=== PATIENT | female | born 1995 | race Caucasian/White ===

== ENCOUNTER → 2017-06-04 | Outpatient (REF) ==
[2017-06-04 15:43] LABS: THYROID STIMULATING HORMONE 1.49 uIU/mL (0.465-4.680)
== END ==
LOC: ZLAB.WCH 14:19
PROVIDERS: Nurse Practitioner Family
DX: Z01.89 Encounter for other specified special examinations (principal)

== ENCOUNTER → 2018-09-19 | Outpatient (REF) | LOC: ZLAB.WCH 16:54 | DX: Z01.89 Encounter for other specified special examinations (principal) ==

== ENCOUNTER → 2018-09-26 | Outpatient (REF) | LOC: ZLAB.WCH 16:10 | DX: Z01.89 Encounter for other specified special examinations (principal) ==

== ENCOUNTER 2019-07-15 18:46 | Inpatient (IN) | payer BC ==
[2019-07-15] VITALS (9 sets, daily range): BP systolic 107–152; BP diastolic 59–84; PULSE 69–90; TEMP 97.8
[~2019-07-15] VITALS: Ht 162.6 cm; Wt 75.5 kg
[~2019-07-15 18:46] MED LIST: ZOLOFT 50MG50 MG PO
[2019-07-15 20:14] LABS: BASO % 0.2 % (0.0-2.0); GRAN # 17.7 (1.4-6.5); GRAN % 85.5 % (42.2-75.2); HEMOGLOBIN 12.3 g/dl (12.5-16.0); LYMPH # 2.1 (1.2-3.4); LYMPH % 10.1 % (20.0-51.0); MEAN CELL VOLUME 93 fl (80.0-100.0); MEAN CORPUSCULAR HEMOGLOBIN 32 pg (27.0-31.0); MEAN CORPUSCULAR HGB CONC 35 g/dl (33.0-37.0); MEAN PLATELET VOLUME 13.4 fl (7.4-10.4); MONO # 0.7 (0.1-0.6); MONO % 3.1 % (1.7-9.3); PLATELET COUNT 194 K/mm3 (130-400); REDCELL DISTRIBUTION WIDTH-CV 12.3 % (11.5-14.5)
[2019-07-15 20:25] LABS: HEMATOCRIT 35.4 % (37.0-47.0)
--- NOTE | 2019-07-15 20:34 | NUR ---
PT OFF MONITOR TO GET INTO SHOWER.
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
[2019-07-16 00:10] VITALS: BP 118/63; PULSE 75
[2019-07-16 01:00] VITALS: BP 123/63; PULSE 108
[2019-07-16 04:25] VITALS: BP 122/62; PULSE 85; TEMP 98.8
[2019-07-16 08:32] VITALS: BP 116/62; PULSE 76; TEMP 97.8
[2019-07-16 16:30] VITALS: BP 117/66; PULSE 77; TEMP 98.1
[2019-07-16 21:00] VITALS: BP 111/64; PULSE 77; TEMP 99.4
[2019-07-17] MEDS ORDERED: MOTRIN 800800 MG/TAB PO (09:08)
[2019-07-17 09:50] VITALS: BP 114/61; PULSE 85; TEMP 98.4
== END 2019-07-17 14:30 | disposition home or self-care (01) | DRG 807 ==
LOC: LDRO 18:46 → LDR 19:26 → OB 07-16 01:05
PROVIDERS: ADMIT Obstetrics & Gynecology
PROC: 10E0XZZ Delivery of Products of Conception, External Approach (ICD-10-PCS; principal; 2019-07-15)
PROC: 0KQM0ZZ Repair Perineum Muscle, Open Approach (ICD-10-PCS; 2019-07-15)
DX: O99.344 Other mental disorders complicating childbirth (principal); Z37.0 Single live birth; O70.1 Second degree perineal laceration during delivery; O36.5990 Maternal care for other known or suspected poor fetal growth, unspecified trimester, not applicable or unspecified; Z3A.38 38 weeks gestation of pregnancy
CPT/HCPCS: J2590; J7120